=== PATIENT | female | born 1960 | race Caucasian/White ===

== ENCOUNTER 2017-04-25 06:20 | Day surgery (SDC) | payer OTHER ==
[~2017-04-25 06:20] MED LIST: ARIMIDEX PO; DITROPAN XL15 MG PO; TESALON PO
== END 2017-04-25 18:00 | disposition home or self-care (01) ==
LOC: U 06:20 → CIR.AMB 06:20
DX: N84.0 Polyp of corpus uteri (principal); N95.0 Postmenopausal bleeding

== ENCOUNTER 2021-04-24 07:25 | Outpatient (CLI) | payer OTHER ==
[2021-04-28] MEDS ORDERED: ATORVASTATIN CA10 MG PO (12:44)
== END 2021-04-24 15:16 | disposition home or self-care (01) ==
LOC: NUCLEAR 07:25
PROVIDERS: ATTEND Internal Medicine Cardiovascular Disease
DX: I25.10 Atherosclerotic heart disease of native coronary artery without angina pectoris (principal)

== ENCOUNTER 2021-04-30 05:14 | Day surgery (SDC) | payer OTHER ==
[~2021-04-30 05:14] MED LIST changes: +ATORVASTATIN CA10 MG PO
== END 2021-04-30 12:05 | disposition home or self-care (01) ==
LOC: CIR.AMB 05:14
PROVIDERS: ATTEND Specialist
DX: K80.10 Calculus of gallbladder with chronic cholecystitis without obstruction (principal); K42.9 Umbilical hernia without obstruction or gangrene; E78.5 Hyperlipidemia, unspecified; J45.909 Unspecified asthma, uncomplicated; Z85.3 Personal history of malignant neoplasm of breast; Z92.21 Personal history of antineoplastic chemotherapy; E66.9 Obesity, unspecified; I87.2 Venous insufficiency (chronic) (peripheral); Z20.822 Contact with and (suspected) exposure to COVID-19